=== PATIENT | female | born 1970 | race Two or more races ===

== ENCOUNTER 2024-08-08 15:06 | Emergency (ER) | payer OTHER ==
[~2024-08-08] VITALS: Ht 160 cm; Wt 81.6 kg
[2024-08-08 16:22] LABS: HEMATOCRIT 40.8 % (36.0-45.00); HEMOGLOBIN 13.7 g/dL (12.0-15.00); MEAN CELL VOLUME 86.9 fL (80.00-100.00); MEAN CORPUSCULAR HEMOGLOBIN 29.1 pg (27.00-32.0); MEAN CORPUSCULAR HGB CONC 33.5 g/dl (32.0-36.0); PLATELET COUNT 339 K/uL (150-450); RED BLOOD COUNT 4.69 M/uL (4.00-6.00); RED CELL DISTRIBUTION WIDTH 14.4 % (11.5-14.5)
[2024-08-08 17:04] LABS: ALBUMIN 3.3 gm/dL (3.4-5.0); BILIRUBIN TOTAL 0.34 mg/dL (0.3-1.2); CALCIUM 9.3 mg/dL (8.5-10.1); CREATININE SERUM 0.94 mg/dL (0.55-1.02); GFR 62.78; GLOBULINA 4.3 G/DL (2.4-3.5); POTASSIUM 3.35 mEq/L (3.5-5.1); TOTAL PROTEIN 7.6 gm/dL (6.4-8.2)
== END 2024-08-08 19:01 | disposition home or self-care (01) ==
LOC: ER 15:07
PROVIDERS: General Practice
DX: R53.81 Other malaise (principal); R06.02 Shortness of breath; Z88.5 Allergy status to narcotic agent; Z88.6 Allergy status to analgesic agent